=== PATIENT | female | born 1960 | race African-American/Black ===

== ENCOUNTER 2021-04-14 05:18 | Inpatient (IN) ==
[~2021-04-14 05:18] MED LIST: ACETAMINOPHEN 500 MG TABLET PO ONE; DIAZEPAM 5 MG TABLET PO ONE; FAMOTIDINE 20 MG TABLET PO ONE; GABAPENTIN 400 MG CAPSULE PO ONE
[2021-04-14] MEDS ORDERED: VANCOMYCIN INJ 1,000 MG in SODIUM CHLORIDE 0.9% 250 ML IV ONE (06:00)
[2021-04-14] MEDS ORDERED: DIAZEPAM 5 MG TABLET ONE (06:38)
[2021-04-14] MEDS ORDERED: ACETAMINOPHEN 500 MG TABLET ONE (06:39)
[2021-04-14] MEDS ORDERED: GABAPENTIN 400 MG CAPSULE ONE (06:39)
[2021-04-14] MEDS ORDERED: FAMOTIDINE 20 MG TABLET ONE (06:39)
[2021-04-14] MEDS ORDERED: LACTATED RINGERS 1,000 ML IV SCH (07:00)
[2021-04-14] MEDS ORDERED: LIDOCAINE 2% 5 ML VIAL ONE (07:26)
[2021-04-14] MEDS ORDERED: MIDAZOLAM 2 MG/2 ML VIAL ONE ×2 (07:26→08:37)
[2021-04-14] MEDS ORDERED: DEXAMETHASONE 4 MG/1 ML VIAL ONE (07:27)
[2021-04-14] MEDS ORDERED: fentaNYL 100 MCG/2 ML VIAL ONE ×2 (07:27→09:31)
[2021-04-14] MEDS ORDERED: ROPIVACAINE 0.5% 30 ML VIAL ONE (07:27)
[2021-04-14] MEDS ORDERED: TRANEXAMIC ACID 1,000 MG/10 ML VIAL ONE (07:49)
[2021-04-14] MEDS ORDERED: DEXMEDETOMIDINE 200 MCG/2 ML VIAL ONE (07:49)
[2021-04-14] MEDS ORDERED: BUPIVACAINE SPINAL 0.75% 2 ML AMP SPINAL ONE (07:49)
[2021-04-14] MEDS ORDERED: GLYCOPYRROLATE 0.4 MG/2 ML VIAL ONE (08:58)
[2021-04-14] MEDS ORDERED: ONDANSETRON 4 MG/2 ML VIAL ONE ×2 (08:58→15:58)
[2021-04-14] MEDS ORDERED: ONDANSETRON 4 MG/2 ML VIAL IV PRN (11:12)
[2021-04-14] MEDS ORDERED: diphenhydrAMINE 50 MG/1 ML VIAL IV PRN (11:12)
[2021-04-14] MEDS ORDERED: MEPERIDINE 25 MG/1 ML VIAL IV PRN (11:12)
[2021-04-14] MEDS ORDERED: PROMETHAZINE INJ 25 MG in SODIUM CHLORIDE 0.9% 50 ML IV PRN (11:12)
[2021-04-14] MEDS ORDERED: HYDROmorphone 2 MG/1 ML VIAL IV PRN (11:12)
[2021-04-14] MEDS ORDERED: MORPHINE 4 MG/1 ML VIAL IV PRN (11:23)
[2021-04-14] MEDS ORDERED: diphenhydrAMINE CAP 25 MG CAPSULE PO PRN (11:23)
[2021-04-14] MEDS ORDERED: TEMAZEPAM 7.5 MG CAPSULE PO PRN (11:23)
[2021-04-14] MEDS ORDERED: BISACODYL 10 MG SUPP RECTAL PRN (11:23)
[2021-04-14] MEDS ORDERED: MAGNESIUM HYDROXIDE SUSP 30 ML UDCUP PO PRN (11:23)
[2021-04-14] MEDS ORDERED: LACTULOSE 20 GM/30 ML UDCUP PO PRN (11:23)
[2021-04-14] MEDS: ceFAZolin 2,000 MG/50 ML DUPLEX IV SCH (19:35)
[2021-04-14] MEDS: ATORVASTATIN 10 MG TABLET PO SCH (21:39)
[2021-04-14] MEDS: DOCUSATE SODIUM 100 MG CAPSULE PO SCH (21:39)
[2021-04-14] MEDS: FONDAPARINUX 2.5 MG/0.5 ML SYRINGE SUBCUT SCH (21:39)
[2021-04-15] MEDS: ceFAZolin 2,000 MG/50 ML DUPLEX IV SCH (01:10)
[2021-04-15 06:24] LABS: Basophils % 0.2 % (0.0-0.8); Hematocrit 33.1 VOL% (35.7-47.0); Immature Granulocytes % 0.4 %; Immature Granulocytes Absolute 0.05 #; Lymphocytes # 1.8 10*3/uL (1.4-4.0); Lymphocytes % 14.5 % (21.3-54.2); Mean Corpuscular HGB Conc 33.2 GM/DL (32-36); Mean Corpuscular Volume 82.8 FL (87-102); Mean Platelet Volume 10.9 FL (9.6-12.0); Monocytes % 7.7 % (1.7-12.7); Neutrophils % 77.2 % (38.7-73.9); Platelet Count 218 T/CUMM (130-400); Red Cell Distribution Width 14.2 % (9.3-17.3); White Blood Count 12.4 T/CUMM (4-12)
[2021-04-15 06:37] LABS: Calcium 8.7 MG/DL (8.5-10.1); Osmolality,Calculated 276.7 MOS/KG (273-304); Potassium 3.6 MMOL/L (3.5-5.1)
[2021-04-15] MEDS: MELOXICAM 7.5 MG TABLET PO SCH (09:57)
[2021-04-15] MEDS: hydroCHLOROthiazide 25 MG TABLET PO SCH (09:57)
[2021-04-15] MEDS: ESCITALOPRAM 10 MG TABLET PO SCH (09:57)
[2021-04-15] MEDS: POTASSIUM CHLORIDE 10 MEQ TABLET PO SCH (09:57)
[2021-04-15] MEDS: CHOLECALCIFEROL 1,000 UNIT TABLET PO SCH (09:57)
[2021-04-15] MEDS: amLODIPine 5 MG TABLET PO SCH (09:57)
[2021-04-15] MEDS: DOCUSATE SODIUM 100 MG CAPSULE PO SCH ×2 (09:57→21:18)
[2021-04-15] MEDS: LOSARTAN 50 MG TABLET PO SCH (09:58)
[2021-04-15] MEDS ORDERED: LACTATED RINGERS 1,000 ML IV ONE (11:51)
[2021-04-15] MEDS: FONDAPARINUX 2.5 MG/0.5 ML SYRINGE SUBCUT SCH (21:18)
[2021-04-15] MEDS: ATORVASTATIN 10 MG TABLET PO SCH (21:19)
[2021-04-16] MEDS: CHOLECALCIFEROL 1,000 UNIT TABLET PO SCH (09:11)
[2021-04-16] MEDS: hydroCHLOROthiazide 25 MG TABLET PO SCH (09:11)
[2021-04-16] MEDS: POTASSIUM CHLORIDE 10 MEQ TABLET PO SCH (09:11)
[2021-04-16] MEDS: DOCUSATE SODIUM 100 MG CAPSULE PO SCH ×2 (09:11→20:14)
[2021-04-16] MEDS: MELOXICAM 7.5 MG TABLET PO SCH (09:11)
[2021-04-16] MEDS: ESCITALOPRAM 10 MG TABLET PO SCH (09:11)
[2021-04-16] MEDS: LOSARTAN 50 MG TABLET PO SCH (09:12)
[2021-04-16] MEDS: amLODIPine 5 MG TABLET PO SCH (09:12)
[2021-04-16] MEDS: ATORVASTATIN 10 MG TABLET PO SCH (20:14)
[2021-04-16] MEDS: FONDAPARINUX 2.5 MG/0.5 ML SYRINGE SUBCUT SCH (20:14)
[2021-04-17] MEDS: DOCUSATE SODIUM 100 MG CAPSULE PO SCH (08:40)
[2021-04-17] MEDS: MELOXICAM 7.5 MG TABLET PO SCH (08:41)
[2021-04-17] MEDS: LOSARTAN 50 MG TABLET PO SCH (08:41)
[2021-04-17] MEDS: ESCITALOPRAM 10 MG TABLET PO SCH (08:41)
[2021-04-17] MEDS: POTASSIUM CHLORIDE 10 MEQ TABLET PO SCH (08:41)
[2021-04-17] MEDS: CHOLECALCIFEROL 1,000 UNIT TABLET PO SCH (08:41)
[2021-04-17] MEDS: hydroCHLOROthiazide 25 MG TABLET PO SCH (08:44)
[2021-04-17] MEDS: amLODIPine 5 MG TABLET PO SCH (08:45)
[2021-04-17 11:19] VITALS: BP 136/72
== END 2021-04-17 11:25 | disposition home health service (06) | DRG 470 ==
LOC: N.OR 05:18 → N.SDSINP 05:28 → N.3E 16:15
PROVIDERS: ADMIT Orthopaedic Surgery; ATTEND Orthopaedic Surgery